=== PATIENT | female | born 1990 | race Caucasian/White ===

== ENCOUNTER 2023-07-02 20:55 | Emergency (ER) | payer BC, OTHER ==
[2023-07-02 21:06] VITALS: BP 107/60; PULSE 52; RESP 18; TEMP 98.4; BMI 20.7
[2023-07-02 22:32] LABS: ALBUMIN 4.3 g/dl (3.4-5.0); BILIRUBIN,TOTAL 0.4 mg/dl (0.2-1); BLOOD UREA NITROGEN 20.3 mg/dl (7-18); CALCIUM 9.3 mg/dl (8.5-10.1); CREATININE 0.8 mg/dl (0.6-1.3); PHOSPHOROUS 4.38 (2.5-4.9); POTASSIUM 4.1 mmol/L (3.5-5.1); SGOT/AST 12.1 U/L (15-37); SGPT/ALT 10.3 U/L (7-52); TOT PROT 6.6 g/dl (6.4-8.2)
[2023-07-03 05:52] LABS: HIV INTERPRETATION NEGATIVE (NEGATIVE)
== END 2023-07-02 22:07 | disposition home or self-care (01) ==
LOC: FER 20:55
DX: S61.202A Unspecified open wound of right middle finger without damage to nail, initial encounter (principal); S61.204A Unspecified open wound of right ring finger without damage to nail, initial encounter; Z77.21 Contact with and (suspected) exposure to potentially hazardous body fluids
CPT/HCPCS: 36415; 80053; 82465; 82977; 83615; 84100; 84478; 86704; 86803; 87340; 87389; 87517; 99283-25

== ENCOUNTER 2023-08-31 20:33 | Emergency (ER) | payer OTHER ==
[2023-08-31 20:41] VITALS: BP 119/73; PULSE 76; RESP 16; TEMP 98.6; BMI 20.7
== END 2023-08-31 21:27 | disposition home or self-care (01) ==
LOC: FER 20:33
DX: S61.253A Open bite of left middle finger without damage to nail, initial encounter (principal); Y04.1XXA Assault by human bite, initial encounter
CPT/HCPCS: 73140-TC-LT-FY; 99283-25